=== PATIENT | male | born 1960 | race Caucasian/White ===

== ENCOUNTER → 2016-09-30 | Outpatient (REF) | payer BC ==
[~2016-09-30] MED LIST: AMOX500C PO; CIAL20TA PO; FISH120012 PO; GABA-282 PO; LORT5TAB PO; MELO7.5T6 PO; OMEP40CA2 PO
[2016-09-30 16:21] LABS: ALBUMIN 3.8 GM/DL (3.2-5.2); ALBUMIN/GLOBULIN RATIO 1.36 (1.00-1.93); ALKALINE PHOSPHATASE 65 U/L (45-117); ALT/SGPT 31 U/L (12-78); ANION GAP 8 MEQ/L (8-16); AST/SGOT 21 U/L (15-37); BILIRUBIN,TOTAL 0.6 MG/DL (0.2-1.0); BLOOD UREA NITROGEN 19 MG/DL (7-18); CALCIUM LEVEL 8.7 MG/DL (8.5-10.1); CARBON DIOXIDE LEVEL 29 MEQ/L (21-32); CHLORIDE LEVEL 104 MEQ/L (98-107); CHOLESTEROL LEVEL 196 MG/DL (<200); CREATININE FOR GFR 0.98 MG/DL (0.70-1.30); GLOMERULAR FILTRATION RATE > 60.0 (>56); GLUCOSE, FASTING 82 MG/DL (70-105); POTASSIUM SERUM 4.3 MEQ/L (3.5-5.1); SODIUM LEVEL 141 MEQ/L (136-145); TOTAL PROTEIN 6.6 GM/DL (6.4-8.2); TRIGLYCERIDES LEVEL 78 MG/DL (<150)
== END ==
LOC: M SFHCLACO 09:35
PROVIDERS: ATTEND Physician Assistant
DX: E78.2 Mixed hyperlipidemia (principal)

== ENCOUNTER → 2017-02-11 | Outpatient (CLI) | payer BC ==
[~2017-02-11] MED LIST changes: +FISH100049 PO; +GASTROGRAFIN SOLUTION 30ML (Q9963) As Ordered ONE; +ISOVUE-370 76% 100ML VIAL (Q9967) As Ordered ONE; -MELO7.5T6 PO; +MELO7.5T7 PO
--- NOTE | 2017-02-11 19:05 | REP ---
CT CHEST WITH CONTRAST: 02/11/2017. Comparison: 09/18/2015, 06/22/2015 CT. Technique: The patient received a bolus of 100 ml as Isovue 370 and scanning through the chest with coronal and sagittal reconstructions. Clinical history: Lymphoma followup. Findings: Lung howell show some dependent atelectatic changes and some peripheral fibrotic changes in the lower lung zones bilaterally. There is no effusion, pleural thickening, calcified pleural plaque, acute infiltrate and or masses. A nodule in the right lower lobe abutting the major fissure on image 60 series 304 on 44 of the sagittal reconstructions which is a new finding from previous studies. Some hazy basilar fibro atelectatic change in the left lower lobe evident beyond the dependent atelectatic change. There is no other nodule, mass or acute infiltrate in the lung howell. In the lower mediastinum there is conglomerate greg mass now measuring 3.9 x 3 cm, previously some adjacent nodes and no coalesced and measuring 3.2 x 2.5 cm in August 2015. Nodes in the gastric pedicle ligament and retrocrural nodes in the upper abdomen. Bone windows show the sternum, manubrium, medial clavicles, left AC joint both glenohumeral joints, scapulae, visualized ribs and spine without fracture, destructive lesion. Small marginal osteophytes are seen. Impression: 1. Adenopathy in the chest with a slightly larger vascular space nodes as described above and also some extrahepatic the ligament no mediastinal lymphadenopathy which is also slightly increased. No pathologic sized axillary adenopathy seen and the supraclavicular nodes appear the same or smaller than on the previous study, more on the left than right. 2. No effusion, acute infiltrate, atelectasis or lung mass and new cysts of 0.6 mm noncalcified nodule in the right lower lobe on image 60 of the axial sequence seen. 3. Next aortic aneurysm, cardiomegaly or pulmonary emboli in the central pulmonary arteries. Bones intact. Overall mild progression of the visualized nodes. Signed by Javy Carreon MD 02/11/2017 08:09 P
--- NOTE | 2017-02-11 19:41 | REP ---
CT ABDOMEN AND PELVIS WITHOUT AND WITH CONTRAST: 02/11/2017. Clinical history: Lymphoma, follow-up. Comparison: CT 12/20/2015. Technique: Oral Gastrografin mixture 10 ml and 290 ml flavored water for two doses per our bowel contrast protocol. Coronal and sagittal reconstructions are provided. Findings: Study shows large nodes in the gastrohepatic ligament and periaortic region in the lower chest and upper abdomen. These have increased in size. The nodes previously 1.3 and 2.4 cm in short axis, now 1.9 and 2.6 cm. Numerous and nearly confluent periaortic and mesenteric adenopathy with greg masses, in conglomerate form have diffusely increased. A large conglomerate greg mass in the anterior abdomen is 14.9 cm in transverse diameter with a depth of 8 cm and a height of 10.2 cm. This is a coalescence of several groups of nodes that previously were much smaller and in aggregate measured maximum transverse diameter 10.6 cm last year. In the interval, the gallbladder has been removed. There is a simple cyst in the right hepatic lobe about 13 mm. The liver shows one other right and another pair of small left cysts, subcentimeter size. Left hepatic lobe shows some fullness. No ascites. No focal solid hepatic mass. Colon is unremarkable. The kidneys show function without obstruction, stone or mass. The aorta is without aneurysm, but has calcifications. No pathologic sized inguinal adenopathy, but numerous small inguinal nodes are present. I do not see definite pelvic mass or pathologic lymphadenopathy. There is some fullness of the iliac and femoral veins bilaterally into the IVC. The colon and small bowel loops grossly intact. The bones in the abdomen and pelvis are unchanged with facet arthropathy and spondylolysis at L4-5 with grade 1 anterolisthesis of L4 on L5, unchanged. Facet arthropathy without spondylolysis or spondylolisthesis at L5-S1. No compression fractures. Impression: 1. Increasing size and extended adenopathy with conglomerate greg masses in the central abdomen as described, now quite large as coalescence of several smaller greg groups and numerous other nodes scattered throughout the mesentery, retrocrural, periaortic, aortocaval and extrahepatic ligament into the lower chest. 2. Interval cholecystectomy. Certainly, progression of the adenopathy. No ascites. The spleen has also increased in size significantly since last year. Maximum diameter 15.8 cm versus 12.9 cm. Signed by Javy Carreon MD 02/11/2017 08:09 P
== END ==
LOC: M RAD 14:36
PROVIDERS: ATTEND Internal Medicine Medical Oncology
DX: C82.08 Follicular lymphoma grade I, lymph nodes of multiple sites (principal)
CPT/HCPCS: 71260; 74178; Q9963; Q9967

== ENCOUNTER → 2017-02-20 | Outpatient (CLI) | payer BC ==
[~2017-02-20] MED LIST changes: -GASTROGRAFIN SOLUTION 30ML (Q9963) As Ordered ONE; -ISOVUE-370 76% 100ML VIAL (Q9967) As Ordered ONE; +NS 1,000 ML IV ONE
[2017-02-20 15:13] VITALS: BP 122/76
== END ==
LOC: M OPP 13:50
PROVIDERS: ATTEND Internal Medicine Gastroenterology
DX: K22.70 Barrett's esophagus without dysplasia (principal); Z53.9 Procedure and treatment not carried out, unspecified reason

== ENCOUNTER → 2017-02-25 | Outpatient (REF) | payer BC ==
[~2017-02-25] MED LIST changes: -NS 1,000 ML IV ONE
== END ==
LOC: M LAB REF 16:35
PROVIDERS: ATTEND Internal Medicine Medical Oncology
DX: C82.08 Follicular lymphoma grade I, lymph nodes of multiple sites (principal)

== ENCOUNTER 2017-03-17 12:16 | Emergency (ER) | payer BC ==
[~2017-03-17] VITALS: Ht 175.3 cm; Wt 87.7 kg
[2017-03-17 15:27] LABS: BASO % 0.1 % (0.0-1.0); EOS % 0.1 % (0.0-3.0); IMMATURE GRANULOCYTE % 1.7 % (0-0); LYMPH # 0.5 10^3/uL (1.5-4.5); LYMPH % 6.8 % (24.0-44.0); MEAN CORPUSCULAR HEMOGLOBIN 29.2 pg (27.0-33.0); MEAN CORPUSCULAR VOLUME 88.6 fl (80.0-96.0); MONO # 0.1 10^3/uL (0.0-0.8); MONO % 1.1 % (0.0-5.0); NEUTROPHILS # 6.3 10^3/uL (1.8-7.7); NEUTROPHILS % 90.2 % (36.0-66.0); PLATELET COUNT, AUTOMATED 132 10^3/uL (150-450); RED CELL DISTRIBUTION WIDTH 14.7 % (11.5-14.5)
[2017-03-17 15:39] LABS: ANION GAP 7 MEQ/L (8-16); BLOOD UREA NITROGEN 23 MG/DL (7-18); CALCIUM LEVEL 8.2 MG/DL (8.5-10.1); CARBON DIOXIDE LEVEL 28 MEQ/L (21-32); CHLORIDE LEVEL 108 MEQ/L (98-107); CHOLESTEROL LEVEL 148 MG/DL (<200); CREATININE FOR GFR 0.83 MG/DL (0.70-1.30); GLOMERULAR FILTRATION RATE > 60.0 (>56); GLUCOSE, FASTING 95 MG/DL (70-105); POTASSIUM SERUM 3.7 MEQ/L (3.5-5.1); SODIUM LEVEL 143 MEQ/L (136-145); TRIGLYCERIDES LEVEL 106 MG/DL (<150)
[2017-03-17 17:01] VITALS: BP 120/76
--- NOTE | 2017-03-17 19:15 | ECGEPIP ---
Stationary ECG Study [facility] - ED Test Date: 2017-03-17 Pat Name: NOE ESPINAL Department: Room: - Gender: M Location Director: nt : 1960 Requested By: GLADIS Zuniga Order Number: [id number] Reading MD: Higinio Leos Measurements Intervals [place] Rate: 82 P: 37 [place]: 169 QRS: 6 QRSD: 113 T: 14 QT: 389 QTc: 454 Interpretive Statements SINUS RHYTHM POSSIBLE LEFT ATRIAL ENLARGEMENT INCOMPLETE RIGHT BUNDLE BRANCH BLOCK NO PRIORS Electronically Signed On 03-17-2017 19:15:46 EDT by Higinio Leos
== END 2017-03-17 17:11 | disposition home or self-care (01) ==
LOC: M ED 12:16 → EDBD 12:16 → M ED 17:11
DX: I45.2 Bifascicular block (principal); C85.90 Non-Hodgkin lymphoma, unspecified, unspecified site; T45.1X5A Adverse effect of antineoplastic and immunosuppressive drugs, initial encounter; Y92.9 Unspecified place or not applicable; Y93.9 Activity, unspecified; G89.29 Other chronic pain; M54.5 Low back pain; Z79.899 Other long term (current) drug therapy; Z88.8 Allergy status to other drugs, medicaments and biological substances

== ENCOUNTER → 2017-03-17 | Outpatient (REF) | payer BC | LOC: M LAB REF 14:14 | PROVIDERS: ATTEND Internal Medicine Medical Oncology | DX: C85.90 Non-Hodgkin lymphoma, unspecified, unspecified site (principal) ==

== ENCOUNTER 2017-04-24 12:41 | Emergency (ER) | payer BC ==
[~2017-04-24] VITALS: Ht 172.7 cm; Wt 86.4 kg
[2017-04-24] MEDS ORDERED: PROC10TA (12:59)
[2017-04-24] MEDS ORDERED: DEXA4TA (12:59)
[2017-04-24] MEDS ORDERED: NS 1,000 ML IV ONE (14:45)
[2017-04-24 15:07] LABS: BASO % 0.6 % (0.0-1.0); EOS # 0.1 10^3/uL (0.0-0.50); EOS % 0.9 % (0.0-3.0); IMMATURE GRANULOCYTE % 0.5 % (0-0); LYMPH # 1.5 10^3/uL (1.5-4.5); LYMPH % 22.3 % (24.0-44.0); MEAN CORPUSCULAR HEMOGLOBIN 28.5 pg (27.0-33.0); MEAN CORPUSCULAR HGB CONC 32.8 g/dl (32.0-36.5); MEAN CORPUSCULAR VOLUME 86.9 fl (80.0-96.0); MONO # 0.6 10^3/uL (0.0-0.8); MONO % 9.1 % (0.0-5.0); NEUTROPHILS # 4.3 10^3/uL (1.8-7.7); NEUTROPHILS % 66.6 % (36.0-66.0); PLATELET COUNT, AUTOMATED 156 10^3/uL (150-450); RED CELL DISTRIBUTION WIDTH 15.1 % (11.5-14.5); WHITE BLOOD COUNT 6.5 10^3/uL (4.0-10.0)
[2017-04-24 15:16] LABS: BLASTS POS FLAG; POSITIVE MORPH POS FLAG
[2017-04-24 15:42] LABS: ALBUMIN 3.6 GM/DL (3.2-5.2); ALBUMIN/GLOBULIN RATIO 1.16 (1.00-1.93); ALKALINE PHOSPHATASE 84 U/L (45-117); ALT/SGPT 19 U/L (12-78); ANION GAP 6 MEQ/L (8-16); AST/SGOT 15 U/L (7-37); BILIRUBIN,DIRECT 0.2 MG/DL (0.0-0.2); BILIRUBIN,TOTAL 0.7 MG/DL (0.2-1.0); BLOOD UREA NITROGEN 19 MG/DL (7-18); CARBON DIOXIDE LEVEL 31 MEQ/L (21-32); CHLORIDE LEVEL 103 MEQ/L (98-107); CREATININE FOR GFR 0.94 MG/DL (0.70-1.30); GLOMERULAR FILTRATION RATE > 60.0 (>56); GLUCOSE, FASTING 78 MG/DL (70-105); POTASSIUM SERUM 4.3 MEQ/L (3.5-5.1); SODIUM LEVEL 140 MEQ/L (136-145); TOTAL PROTEIN 6.7 GM/DL (6.4-8.2)
[2017-04-24] MEDS ORDERED: ISOVUE-370 76% 100ML VIAL (Q9967) As Ordered ONE (15:50)
[2017-04-24] MEDS ORDERED: PERC5TAB12 PO ×2 (17:27→17:28)
[2017-04-24 17:43] VITALS: BP 118/69
--- NOTE | 2017-04-24 17:45 | REP ---
CT abdomen and pelvis with IV but without oral contrast: History: Abdominal pain. History of lymphoma. Comparison CT study: February 11, 2017. This prior CT study showed progressive bulky intra-abdominal and retroperitoneal lymphadenopathy. CT contrast dose: 100 ml of Isovue [address] findings: Digital preliminary burlapper radiograph demonstrates a few loops of air-filled small bowel in the right central abdomen. No colonic dilation is seen. Hepatosplenomegaly is again observed. The spleen measures 17.8 cm in greatest transverse dimension. The craniocaudal dimension of the liver in the midclavicular line is 16.2 cm. There are two or three tiny low density cysts in the liver and one left lobe cyst is seen measuring 1.5 cm unchanged. Post cholecystectomy clips are seen. Again noted is bulky abdominal lymphadenopathy with retrocrural, periaortic pericaval, periportal, and small bowel mesenteric confluent bulky lymphadenopathy. This has progressed somewhat. The largest confluent mesenteric greg mass was previously measured as 14.9 x 8.1 cm in right to left by anteroposterior dimension. Measured at the same level, this mass today measures 16.6 x 9.3 cm. Several of the periaortic and periportal lymph nodes and retrocrural lymph nodes appears slightly larger. There is some adjacent mesenteric edema again noted. This mesenteric edema is probably a little more prominent today with a small quantity of left pericolic and pelvic ascitic fluid as a new finding. There is no evidence of free air or obstruction. Kidneys enhance symmetrically and are morphologically intact. No adrenal lesion is seen. No bony destructive lesion is appreciated. There is degenerative disc disease at L4-5 with a stable grade 1 L4-5 spondylolisthesis again noted. No pelvic adenopathy is appreciated. Prostate is mildly prominent. Impression: Very bulky retrocrural, retroperitoneal, and mesenteric adenopathy are again seen consistent with lymphoma. This has progressed somewhat since the February 11, 2017 CT study. There is some increase in associated mesenteric edema and some left pericolic gutter and pelvic recess ascitic fluid is seen. This is quite mild. It is a new finding however. No other acute abnormality seen. Normal appendix is noted. Signed by Obed Moore MD 04/26/2017 12:30 P
== END 2017-04-24 17:45 | disposition home or self-care (01) ==
LOC: M ED 12:41
DX: R59.0 Localized enlarged lymph nodes (principal); R18.8 Other ascites; K21.9 Gastro-esophageal reflux disease without esophagitis; E78.5 Hyperlipidemia, unspecified; C85.90 Non-Hodgkin lymphoma, unspecified, unspecified site; M54.9 Dorsalgia, unspecified; K22.70 Barrett's esophagus without dysplasia; Z79.899 Other long term (current) drug therapy; Z88.8 Allergy status to other drugs, medicaments and biological substances
CPT/HCPCS: 74177; 80048; 80076; 81001; 85025; 96360; 96361; 99284; Q9967

== ENCOUNTER 2017-05-26 08:10 | Day surgery (SDC) | payer BC ==
[2017-05-26] MEDS: NS 1,000 ML IV (09:30)
[2017-05-26] MEDS ORDERED: LIDOCAINE 2% INJ 100 MG/5 ML SDV (FOR ANES.) As Ordered (09:45)
[2017-05-26] MEDS ORDERED: PROPOFOL 200 MG/20 ML VIAL As Ordered (09:45)
== END 2017-05-26 10:51 | disposition home or self-care (01) ==
LOC: M OPP 08:10
DX: K22.70 Barrett's esophagus without dysplasia (principal); K22.8 Other specified diseases of esophagus; K44.9 Diaphragmatic hernia without obstruction or gangrene; K21.9 Gastro-esophageal reflux disease without esophagitis; M54.9 Dorsalgia, unspecified; E78.5 Hyperlipidemia, unspecified; C85.90 Non-Hodgkin lymphoma, unspecified, unspecified site; M19.90 Unspecified osteoarthritis, unspecified site; Z79.891 Long term (current) use of opiate analgesic; Z79.899 Other long term (current) drug therapy; Z88.8 Allergy status to other drugs, medicaments and biological substances
CPT/HCPCS: 43239

== ENCOUNTER → 2017-06-26 | Outpatient (CLI) | payer BC ==
[~2017-06-26] MED LIST changes: -AMOX500C PO; -CIAL20TA PO; -FISH100049 PO; -FISH120012 PO; -GABA-282 PO; +GASTROGRAFIN SOLUTION 30ML (Q9963) As Ordered; +ISOVUE-370 76% 100ML VIAL (Q9967) As Ordered; -LORT5TAB PO; -MELO7.5T7 PO; -OMEP40CA2 PO
== END ==
LOC: M RAD 08:14
DX: C85.90 Non-Hodgkin lymphoma, unspecified, unspecified site (principal); R91.1 Solitary pulmonary nodule
CPT/HCPCS: Q9963

== ENCOUNTER → 2018-04-01 | Outpatient (CLI) | payer BC | LOC: M RAD 09:13 | DX: C85.90 Non-Hodgkin lymphoma, unspecified, unspecified site (principal) | CPT/HCPCS: Q9963 ==

== ENCOUNTER → 2019-02-08 | Outpatient (CLI) | payer BC ==
[~2019-02-08] MED LIST changes: +ADVA115A INH; +AMOX500C PO; +CIAL20TA PO; +DEXA4TA; +FISH100049 PO; +FISH120012 PO; +FISH120016 PO; +GABA-843 PO; -GASTROGRAFIN SOLUTION 30ML (Q9963) As Ordered; -ISOVUE-370 76% 100ML VIAL (Q9967) As Ordered; +LORT5TAB PO; +MELO7.5T7 PO; +OMEP40CA97 PO; +PERC5TAB12 PO; +PROC10TA4
--- NOTE | 2019-02-09 06:19 | REP ---
Clinical: History of lymphoma. Technique: Axial noncontrast images from the thoracic inlet to the upper abdomen with coronal and sagittal re-formations. Findings: Current examination demonstrates small area of plate-like atelectasis / consolidation in the basilar/lingular left upper lobe along with mild left basilar atelectasis. Chronic fibroatelectatic changes in the right middle lobe remains stable. No effusion. No pneumothorax. Prevascular stranding and solitary lymph node within the mediastinum remains stable and no further acute adenopathy is identified. Thoracic aorta without aneurysm. Cardiomegaly is appreciated with atherosclerotic changes to the coronary arteries. No pericardial effusion. Tracheobronchial tree is patent. Thyroid gland appears normal. Surrounding osseous structures intact without focal abnormality. Limited upper abdomen demonstrates normal bilateral adrenal glands along with moderate stranding through the central mesentery and small mildly prominent mesenteric lymph nodes Impression: 1. Acute area of plate-like atelectasis / consolidation in the left lower lung zone along with left basilar atelectasis. 2. No significant or new intrathoracic adenopathy. However, stranding to the visualized upper abdominal mesentery with mildly prominent mesenteric lymph nodes are noted. Electronically Signed by Danny Park MD 02/09/2019 06:11 A
== END ==
LOC: M RAD 09:02
PROVIDERS: ATTEND Nurse Practitioner Family
DX: J98.4 Other disorders of lung (principal); R91.8 Other nonspecific abnormal finding of lung field

== ENCOUNTER → 2019-02-14 | Outpatient (CLI) | payer BC ==
[~2019-02-14] MED LIST changes: +OMEP40CA2 PO; -OMEP40CA97 PO; +PROHANCE 279.3MG/ML 15ML VIAL (A9576) As Ordered ONE; +PROHANCE 279.3MG/ML 5ML VIAL (A9576) As Ordered ONE
--- NOTE | 2019-02-14 13:26 | REP ---
MRI brain without and with IV contrast: History: History of lymphoma. Vision changes. Contrast enhancement dose: 17 mL of intravenous ProHance. Technique: Axial and sagittal imaging planes are utilized for T1 and T2-weighted scans. Sequences include spin-echo, fast spin echo, FLAIR, and diffusion weighted sequences. MRI findings: No bony calvarial lesion is seen. Craniocervical junction and upper cervical cord are normal in appearance. There is no evidence of intraorbital abnormality. There is no MR evidence of significant paranasal sinus disease. No intracranial hemorrhage is seen. There is no evidence of restricted diffusion on diffusion-weighted scans to suggest ischemia. No intracranial mass lesion is observed. Postcontrast images show enhancement in normal vessels. No abnormal contrast enhancement is appreciated. Impression: There is no evidence of intracranial neoplastic disease. Electronically Signed by Obed Moore MD 02/14/2019 05:17 P
== END ==
LOC: M RAD 10:55
PROVIDERS: ATTEND Internal Medicine Hematology & Oncology
DX: Z85.72 Personal history of non-Hodgkin lymphomas (principal)
CPT/HCPCS: 70553; A9576

== ENCOUNTER → 2020-11-04 | Outpatient (CLI) | payer BC ==
[~2020-11-04] MED LIST changes: +GABA-282 PO; -GABA-843 PO; -OMEP40CA2 PO; +OMEP40CA97 PO; -PROHANCE 279.3MG/ML 15ML VIAL (A9576) As Ordered ONE; -PROHANCE 279.3MG/ML 5ML VIAL (A9576) As Ordered ONE; +ZETI10TA16 PO
--- NOTE | 2020-11-04 11:23 | REP ---
INDICATION: UNSP INJURY OF MUSC/FASC/TEND PRT BICEPS, RIGHT. 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 Audible snap and persistent pain in the distal biceps/elbow region. COMPARISON: No comparison radiographs are available.. TECHNIQUE: Axial, coronal, and sagittal imaging planes are utilized. T1 and T2 weighted scans are obtained in the usual fashion with without fat saturation. FINDINGS: Cortical and medullary bone signal intensity are normal. There is no evidence of occult fracture about the elbow. There is a tiny cyst in the distal humerus. There is a moderate to large elbow joint effusion visible with some synovial thickening consistent with synovitis. There is mild subcutaneous edema about the medial and lateral aspect of the elbow as well. The medial and lateral collateral ligaments appear to be intact. There is fluid at the medial epicondyle which may reflect medial epicondylitis or post traumatic partial tendon insertion tear changes. I do not see evidence of a biceps or brachialis tendon tear. Triceps tendon appears intact and unremarkable as well. There is mild articular spurring of the coronoid and a olecranon processes of the proximal ulna. There is no visible loose body or vascular abnormality.. IMPRESSION: Moderate size elbow articulation joint effusion consistent with synovitis. Question partial tendon insertion tear on the medial epicondyle. Periarticular edema. No evidence of biceps or brachialis tendon tear. <Electronically signed by Long Moore > 11/04/20 [id number]
== END ==
LOC: M RAD 09:18
PROVIDERS: ATTEND Family Medicine
DX: S46.201A Unspecified injury of muscle, fascia and tendon of other parts of biceps, right arm, initial encounter (principal); X58.XXXA Exposure to other specified factors, initial encounter; Y92.9 Unspecified place or not applicable

== ENCOUNTER → 2022-07-14 | Outpatient (CLI) | payer BC ==
[~2022-07-14] MED LIST changes: +ASPI81TA26 PO; +CLOP75TA2; +GASTROGRAFIN SOLUTION 30ML As Ordered ONE; +ISOVUE-370 76% 100ML VIAL As Ordered ONE; +METO1TAB32; +OMEP40CA4 PO; -OMEP40CA97 PO; -PROC10TA4; +PROC10TA5
== END ==
LOC: M RAD 12:27
PROVIDERS: ATTEND Internal Medicine Medical Oncology
DX: C82.90 Follicular lymphoma, unspecified, unspecified site (principal)

== ENCOUNTER → 2023-02-02 | Outpatient (CLI) | payer BC ==
[~2023-02-02] MED LIST changes: +EZET10TA58 PO; -GASTROGRAFIN SOLUTION 30ML As Ordered ONE; -ISOVUE-370 76% 100ML VIAL As Ordered ONE; +TADA10TA PO; -ZETI10TA16 PO
== END ==
LOC: M PLAIMG 07:55
PROVIDERS: ATTEND Specialist
DX: R91.8 Other nonspecific abnormal finding of lung field (principal)

== ENCOUNTER 2023-05-28 10:04 | Day surgery (SDC) | payer BC ==
[~2023-05-28] VITALS: Ht 172.7 cm; Wt 96.6 kg
[~2023-05-28 10:04] MED LIST changes: -CLOP75TA2; +CLOP75TA2 PO; -METO1TAB32; +METO1TAB32 PO; +REPA140I2
[2023-05-28] MEDS: NS 1,000 ML IV ONE (10:19)
[2023-05-28] MEDS ORDERED: propofoL 500 MG/50 ML VIAL As Ordered ONE (10:24)
[2023-05-28] MEDS ORDERED: LIDOCAINE 2% 100MG/5ML SDV (FOR ANES.) As Ordered ONE (10:24)
[2023-05-28] MEDS ORDERED: fentaNYL 100 MCG/2 ML INJECTION As Ordered ONE (10:24)
[2023-05-28 11:30] VITALS: TEMP 97.7
[2023-05-28 11:48] VITALS: BP 117/59; O2SAT 95
== END 2023-05-28 12:11 | disposition home or self-care (01) ==
LOC: M OPP 10:04
PROVIDERS: ATTEND Internal Medicine Gastroenterology
DX: R19.7 Diarrhea, unspecified (principal); K64.8 Other hemorrhoids; K63.89 Other specified diseases of intestine; K22.89 Other specified disease of esophagus; K29.70 Gastritis, unspecified, without bleeding; Z87.19 Personal history of other diseases of the digestive system; Z85.72 Personal history of non-Hodgkin lymphomas; Z90.49 Acquired absence of other specified parts of digestive tract; Z95.5 Presence of coronary angioplasty implant and graft
CPT/HCPCS: 43239; 45380; 88305; J3010

== ENCOUNTER → 2023-06-24 | Outpatient (CLI) | payer BC ==
[~2023-06-24] MED LIST changes: +GLUCAGON INJ 1MG VIAL As Ordered ONE; +ISOVUE-370 76% 100ML VIAL As Ordered ONE; +NEULUMEX 0.1% SUSPENSION 450ML BOTTLE (FORMERLY VOLUMEN) As Ordered ONE
== END ==
LOC: M RAD 13:28
PROVIDERS: ATTEND Physician Assistant Medical
DX: R19.7 Diarrhea, unspecified (principal)
CPT/HCPCS: 74177; J1610; Q9967

== ENCOUNTER → 2024-02-19 | Outpatient (CLI) | payer BC ==
[~2024-02-19] MED LIST changes: +ASCO500C3 PO; +GASTROGRAFIN SOLUTION 30ML As Ordered ONE; -GLUCAGON INJ 1MG VIAL As Ordered ONE; +METO1TAB32; -NEULUMEX 0.1% SUSPENSION 450ML BOTTLE (FORMERLY VOLUMEN) As Ordered ONE; +OMEG10002 PO
== END ==
LOC: M RAD 14:53
PROVIDERS: ATTEND Internal Medicine Medical Oncology
DX: C82.90 Follicular lymphoma, unspecified, unspecified site (principal); K76.0 Fatty (change of) liver, not elsewhere classified; M43.16 Spondylolisthesis, lumbar region; M46.96 Unspecified inflammatory spondylopathy, lumbar region
CPT/HCPCS: 71260; 74177; Q9963; Q9967